=== PATIENT | male | born 1975 | race Caucasian/White ===

== ENCOUNTER 2017-10-21 20:28 | Emergency (ER) | payer MEDICAID ==
--- NOTE | 2017-10-21 21:01 | EDPHY ---
H & P Smoking Status: Heavy smoker Time Seen by Provider: 10/21/17 20:47 HPI/ROS: CHIEF COMPLAINT: "I just need some help " HISTORY OF PRESENT ILLNESS: 42-year-old male, homeless, history of depression, off of his antidepression medications for several months, states that he is increasingly depressed, with suicidal ideation, due to current cold weather in this area and being turned away from numerous shelters. His suicide plan is to jump in front a car. Denies homicidal ideation. Denies alcohol or drug use. He has been riding the bus all day until his bus pass ran out and he came to the ER. He is initially from [place]. States his history of suicidal ideation in history of suicide attempt. PRIMARY CARE PROVIDER: None REVIEW OF SYSTEMS: A ten point review of systems was performed and is negative with the exception of the items mentioned in the HPI PAST MEDICAL & SURGICAL HISTORY: Depression SOCIAL HISTORY: Homeless. No alcohol no drug use PHYSICAL EXAM (Prior to examination, patient consented to physical exam, hands were washed and my usual and customary physical exam procedures followed) 1) GENERAL: Poorly kept, appears angry 2) HEAD: Normocephalic, atraumatic 3) HEENT: Pupils equal, round, reactive to light bilaterally. Sclera anicteric. 4) NECK: Full range of motion, no meningeal signs. 5) LUNGS: Clear auscultation bilaterally, no wheezes, no rhonchi, no retractions. 6) HEART: Regular rate and rhythm, no murmur, no heave, no gallop. 7) ABDOMEN: No guarding, no rebound, no focal tenderness, 8) MUSCULOSKELETAL: No peripheral edema or discoloration. 9) BACK: No visual or palpable abnormality. 10) SKIN: No rash, no petechiae. 11) Psychiatric: Patient is oriented X 3, he is intermittently agitated DIFFERENTIAL DIAGNOSIS: In no particular include but limited to suicidal ideation, homicidal ideation, psychosis, malingering (Emily,Darling Hilary) Constitutional: Initial Vital Signs Temperature (C) 37.0 C 10/21/17 20:33 Heart Rate 87 10/21/17 20:33 Respiratory Rate 16 10/21/17 20:33 Blood Pressure 161/99 H 10/21/17 20:33 O2 Sat (%) 96 10/21/17 20:33 O2 Delivery Mode Room Air Allergies/Adverse Reactions: No Known Allergies Allergy (Unverified 10/21/17 20:36) Home Medications: Medication Instructions Recorded NK [No Known Home Meds] 10/21/17 MDM/Departure - [facility] ED Course/Re-evaluation: 9:30 p.m..: The patient endorses suicidal ideation with plan to jump in front of vehicle. He has prior history of depression and suicide attempt. He has been placed on M1 hold after consultation with secondary supervising physician Dr. Rashawn Scales in the ER with whom I discussed case Care turned over to Dr. Ranjan Mcnulty pending mental health evaluation (Darling Diaz) I did not see this patient while he was in the emergency department. However his care was discussed with the PA while the patient was in the department. I agree with treatment plan and management. I am the secondary supervising physician (Rashawn Scales) 0206: Patient has been seen evaluated by mental health. They do not feel that he needs inpatient psychiatric hospitalization. He has been given with mental health outpatient resources. I did go me the patient is not suicidal. He will be discharged from the emergency room. Return precautions discussed with the patient (Ranjan Mcnulty) - Depart Disposition: Home, Routine, Self-Care Clinical Impression: Depression Qualifiers: Depression Type: other depression Qualified Code(s): F32.89 - Other specified depressive episodes Condition: Fair Instructions: Depression (ED) Additional Instructions: 1. Return emergency room if you have worsening symptoms questions or concerns. 2. Please follow up with resources your were provided today. Referrals: [facility],. [Clinic] - As per Instructions
[2017-10-21 22:01] LABS: PLATELET COUNT 243 10^3/uL (150-400)
[2017-10-21 23:58] VITALS: RESP 18
[2017-10-22 03:21] VITALS: BP 134/85; PULSE 86; TEMP 97.9; O2SAT 95
== END 2017-10-22 03:35 | disposition home or self-care (01) ==
DX: F32.89 Other specified depressive episodes (principal); F17.200 Nicotine dependence, unspecified, uncomplicated
CPT/HCPCS: 80305; G0480